=== PATIENT | male | born 1955 | race Caucasian/White ===

== ENCOUNTER 2020-05-31 06:25 | Day surgery (SDC) | payer MEDICARE ==
[~2020-05-31] VITALS: Ht 190.5 cm; Wt 102.8 kg
[~2020-05-31 06:25] MED LIST: AMIT50 PO; ATOR20 PO; Acetaminophen650 M1 PO; Aspir 8181 MG PO; B12 FOLATE PO; BUPRENORPHINE HC2 MG SL; COSENTYX P150 MG/11 SQ; DICL75ER PO; DULO60 PO; GABA300 PO; MELATONIN5 M1 PO; Milk Thistle175 M1 PO; PRED20 PO; TUMERIC PO; Vitamin D2000 UNIT PO
--- NOTE | 2020-05-31 07:24 | NUR ---
05/31/20 0724 Sarah Sanchez LATE ENTRY: UPON STARTING IV PT STARTED TO HAVE A PANIC ATTACK. FIRST IV IN RIGHT HAND UNSUCCESSFUL. PT CONTINUES TO SHAKE, HYPERVENTILATE COOL WASH CLOTH APPLIED TO FORHEAD. DR JALLOH IS NOTIFIED AND COMES TO SEE THE PT.
--- NOTE | 2020-05-31 09:50 | NUR ---
05/31/20 3129 Essence Millan PT C/O MILD ELBOW PAIN AT THIS TIME. TOLERATING PO FLUIDS WELL, RN ENCOURAGING PO COOKIES IN ORDER TO GIVE PO PAIN PILL. O2 SATS 89 ON ROOM AIR, O2 3L APPLIED VIA NC. PT STATES HAND IS NUMB. PT CONVERSATING WITH AT CHAIRSIDE.
== END 2020-05-31 10:54 | disposition home or self-care (01) ==
LOC: ORSCSDS 06:25
PROVIDERS: Orthopaedic Surgery
PROC: 01N50ZZ Release Median Nerve, Open Approach (ICD-10-PCS; principal; 2020-05-31 07:30)
PROC: 01S40ZZ Reposition Ulnar Nerve, Open Approach (ICD-10-PCS; principal; 2020-05-31 07:30)
PROC: 0JNK0ZZ Release Left Hand Subcutaneous Tissue and Fascia, Open Approach (ICD-10-PCS; principal; 2020-05-31 07:30)
PROC: 0LN80ZZ Release Left Hand Tendon, Open Approach (ICD-10-PCS; principal; 2020-05-31 07:30)
DX: G56.02 Carpal tunnel syndrome, left upper limb (principal); M65.342 Trigger finger, left ring finger; M72.0 Palmar fascial fibromatosis [Dupuytren]; G56.22 Lesion of ulnar nerve, left upper limb; E78.5 Hyperlipidemia, unspecified; Z79.899 Other long term (current) drug therapy; Z79.82 Long term (current) use of aspirin
CPT/HCPCS: 88304; A9270; J0690; J1100; J1885; J2250; J2405; J2704; J2795; J3010; J7120

== ENCOUNTER → 2020-10-28 | Outpatient (CLI) | payer MEDICARE | END | disposition home or self-care (01) | LOC: LAB SHORT 13:02 → LAB EV 13:02 | DX: L08.9 Local infection of the skin and subcutaneous tissue, unspecified (principal) | CPT/HCPCS: 87070; 87077; 87147; 87186; 87205 ==

== ENCOUNTER 2021-03-22 16:11 | Emergency (ER) | payer MEDICARE ==
[~2021-03-22] VITALS: Ht 190.5 cm; Wt 97.5 kg
[2021-03-22 17:12] LABS: BASOPHILS ABSOLUTE AUTO 0.02 K/mm3 (0.00-0.23); BASOPHILS PERCENT AUTO 0 % (0-2); EOSINOPHILS ABSOLUTE AUTO 0.02 K/mm3 (0.00-0.68); EOSINOPHILS PERCENT AUTO 0 % (0-6); Hematocrit 37.1 % (37.0-53.0); Hemoglobin 12.6 g/dL (13.5-17.5); IMMATURE GRAN ABSOLUTE AUTO 0.02 K/mm3 (0.00-0.10); IMMATURE GRAN PERCENT AUTO 0 % (0-1); LYMPHOCYTES ABSOLUTE AUTO 1.35 K/mm3 (0.84-5.20); LYMPHOCYTES PERCENT AUTO 15 % (21-46); MONOCYTES ABSOLUTE AUTO 0.92 K/mm3 (0.16-1.47); MONOCYTES PERCENT AUTO 10 % (4-13); Mean Corpuscular HGB 33.2 pg (26.0-34.0); Mean Corpuscular Volume 98 fL (80-100); Mean Platelet Volume 11.9 fL (9.1-12.4); NEUTROPHILS PERCENT AUTO 74 % (41-73); Platelet Count 163 K/mm3 (150-400); RDW Coefficient Variation 11.9 % (11.7-14.2); RDW Standard Deviation 42.8 fL (35.1-46.3); White Blood Cell Count 8.83 K/mm3 (4.00-11.30)
[2021-03-22 17:13] LABS: Alanine Aminotransfer (ALT/SGP 26 U/L (12-78); Albumin, Blood 3.8 g/dL (3.4-5.0); Albumin/Globulin Ratio 1.3 (0.8-1.8); Alk Phos 93 U/L (50-136); Anion Gap 4 mmol/L (6-16); Aspartate Aminotrans (AST/SGOT 24 U/L (12-37); Bilirubin, Total 0.7 mg/dL (0.1-1.0); Blood Urea Nitrogen 32 mg/dL (8-24); Bun/Creatinine Ratio 36.7 (12.0-20.0); CO2, Blood 26 mmol/L (21-32); Chloride, Blood 109 mmol/L (98-108); Creatinine, Blood 0.87 mg/dL (0.60-1.20); Globulin, Blood 2.9 g/dL (2.2-4.0); Glomerular Filtration Rate >60 (60-); Glucose, Blood 110 mg/dL (70-99); Potassium, Blood 3.9 mmol/L (3.5-5.5); Sodium, Blood 139 mmol/L (136-145); Total Protein, Blood 6.7 g/dL (6.4-8.2)
[2021-03-22 18:25] LABS: Source, Urine Catheter
[2021-03-22 18:39] LABS: Appearance, Urine Clear (Clear); Bilirubin, Urine Neg (Neg); Blood, Urine Neg (Neg); Color, Urine Yellow (P-Yellow); Glucose Qualitative, Urine Neg (Neg); Ketones, Urine Neg (Neg); Leukocyte Esterase, Urine Neg (Neg); Nitrite, Urine Neg (Neg); Protein, Urine Neg (Neg); Urobilinogen, Urine NORM (Normal)
[2021-03-22] MEDS ORDERED: MAGCIT300 PO (19:23)
== END 2021-03-22 20:47 | disposition home or self-care (01) ==
LOC: ER 16:11
PROVIDERS: Physician Assistant
DX: K59.00 Constipation, unspecified (principal); F17.210 Nicotine dependence, cigarettes, uncomplicated; Z79.899 Other long term (current) drug therapy; Z79.82 Long term (current) use of aspirin
CPT/HCPCS: 51701; 51798; 74177; 80053; 81003; 83605; 83690; 85025; 93005; 93010; 96374-59; 96375-59; 99284-25; J1170; J1642; J2270; J2405; J7030; Q9967

== ENCOUNTER → 2021-10-11 | Outpatient (CLI) | payer MEDICARE ==
[~2021-10-11] MED LIST changes: +MAGCIT300 PO
== END | disposition home or self-care (01) ==
LOC: LAB SHORT 14:54
DX: C44.612 Basal cell carcinoma of skin of right upper limb, including shoulder (principal)
CPT/HCPCS: 88305

== ENCOUNTER → 2022-04-18 | Outpatient (CLI) | payer MEDICARE | END | disposition home or self-care (01) | LOC: LAB SHORT 15:05 → LAB 15:05 | DX: C44.619 Basal cell carcinoma of skin of left upper limb, including shoulder (principal); C44.519 Basal cell carcinoma of skin of other part of trunk | CPT/HCPCS: 88305 ==

== ENCOUNTER → 2022-11-14 | Outpatient (CLI) | payer MEDICARE | END | disposition home or self-care (01) | LOC: LAB SHORT 12:47 → PLD 12:47 | DX: D48.5 Neoplasm of uncertain behavior of skin (principal) | CPT/HCPCS: 88305; 88342 ==

== ENCOUNTER → 2023-05-14 | Outpatient (CLI) | payer MEDICARE | LOC: LAB SHORT 12:49 → PLD 12:49 | DX: C44.612 Basal cell carcinoma of skin of right upper limb, including shoulder (principal) | CPT/HCPCS: 88305 ==